=== PATIENT | female | born 1940 | race Caucasian/White ===

== ENCOUNTER → 2016-03-26 | Outpatient (CLI) | payer MEDICARE, OTHER ==
[2015-11-01 08:45] VITALS: BP 116/52
[~2016-03-26] MED LIST: ALEN70TA5 PO; ASPI-482 PO; ATEN50TA PO; ATORVASTATIN CA80 MG PO; CALC-104 PO; FURO-68 PO; FURO40TA4 PO; HYDR-971 PO; INSU100I13 SQ; INSU100I17 SQ; LEVO75TA5 PO; LISI40TA PO; MULT1TAB52 PO; SPIR25TA3 PO
--- NOTE | 2016-03-26 14:53 | KCIC ---
PROCEDURE Bone density DEXA. HISTORY Postmenopausal, osteoporosis. COMPARISON Bone density February 10, 2010. FINDINGS Dual photon densitometry of the lumbar spine and left proximal femur is performed. Bone mineral density values are measured in grams per cm2. Lumbar spine, L1-L4, total bone mineral density is 1.440, T-score 3.6, Z-score 5.9. On prior study the T-score was 2.2. Left total femur bone mineral density 0.846, T-score -0.8, Z-score 1.0. On prior study the T-score was -1.0. World Health Organization criteria for bone mineral density interpretation classify patient's as normal (T-score at or above -1.0), osteopenic (T-score between -1 and -2.5), or osteoporotic (T-score at or below -2.5). IMPRESSION Normal bone mineral density of the lumbar spine and the left femur. Electronically signed by: Sergei Watson MD (Mar 26, 2016 14:52:15)
== END | disposition home or self-care (01) ==
LOC: KCIC DEXA 14:05
PROVIDERS: ATTEND Nurse Practitioner Family
DX: M81.0 Age-related osteoporosis without current pathological fracture (principal); Z78.0 Asymptomatic menopausal state
CPT/HCPCS: 77080

== ENCOUNTER → 2016-04-27 | Outpatient (CLI) | payer MEDICARE, OTHER ==
[2015-11-01 08:45] VITALS: BP 116/52
--- NOTE | 2016-04-27 15:38 | KCIC ---
BILATERAL LOWER EXTREMITY VENOUS DUPLEX DOPPLER Indication:Reason For Study Reason: BLE SWELLING, LEFT MEDIAL KNEE HEMATOMA / Spl. Instructions: / History: Technique: Multiple real-time grayscale sonographic images were obtained over the bilateral lower extremities with use of spectral analysis and color Doppler imaging. Findings: There is normal color fill in on Doppler imaging of the bilateral deep venous system in the lower extremities. There is normal response to compression and augmentation. No evidence for deep venous thrombosis. No soft tissue mass or fluid collection is identified. Impression: Negative for deep venous thrombosis in the bilateral lower extremities. Electronically signed by: Spencer Aguila (Apr 27, 2016 15:36:36)
== END | disposition home or self-care (01) ==
LOC: KCIC US 13:53
PROVIDERS: ATTEND Nurse Practitioner Family
DX: S83.412A Sprain of medial collateral ligament of left knee, initial encounter (principal)
CPT/HCPCS: 93970

== ENCOUNTER → 2017-01-06 | Outpatient (CLI) | payer MEDICARE, OTHER ==
[2015-11-01 08:45] VITALS: BP 116/52
--- NOTE | 2017-01-06 14:24 | RAD ---
DATE: 01/06/2017. EXAM: DIGITAL SCREEN BILAT W/CAD. HISTORY: Routine mammographic screening. COMPARISON: 10/15/2015. This study was interpreted with the benefit of Computerized Aided Detection (CAD). FINDINGS: The breast parenchyma is primarily fatty replaced. Breast parenchyma level density A.. There are no suspicious masses, microcalcifications or architectural distortion. Scattered and coarse calcifications are stable and benign. A few parenchymal densities are stable. BI-RADS CATEGORY: 2 BENIGN FINDING(S). RECOMMENDED FOLLOW-UP: 12M 12 MONTH FOLLOW-UP. PQRS compliance statement: Patient information was entered into a reminder system with a target due date 01/06/2018 for the next mammogram. Mammography is a sensitive method for finding small breast cancers, but it does not detect them all and is not a substitute for careful clinical examination. A negative mammogram does not negate a clinically suspicious finding and should not result in delay in biopsying a clinically suspicious abnormality. "Our facility is accredited by the [employer] Mammography Program."
== END | disposition home or self-care (01) ==
LOC: MAMMO 12:15
PROVIDERS: ATTEND Family Medicine
DX: Z12.31 Encounter for screening mammogram for malignant neoplasm of breast (principal)
CPT/HCPCS: G0202; 77067

== ENCOUNTER → 2018-01-18 | Outpatient (CLI) | payer MEDICARE, OTHER ==
[2015-11-01 08:45] VITALS: BP 116/52
[~2018-01-18] MED LIST changes: +HYDR-3164 PO; -HYDR-971 PO; +LISI-130 PO; -LISI40TA PO; -SPIR25TA3 PO; +SPIR25TA5 PO
--- NOTE | 2018-01-18 14:06 | KCIC ---
MRI Lumbar Spine without contrast History: Left leg weakness, lumbar radiculopathy Technique: Multiplanar, multi sequential noncontrast MR imaging was performed of the lumbar spine. Comparison: None Findings: There is some motion degradation. There is grade 1 anterior spondylolisthesis L4-5, negligible anterior spondylolisthesis L3-4 and L5-S1 and negligible posterior subluxation L2 relative L3. Conus terminates at L1-2. There is fairly advanced degenerative disc disease at L2-3, moderate degenerative disc disease at L4-5 and to a somewhat lesser degree at L1-2 and L3-4, very minimally L5-S1. There are hemangiomas of T10, L2, L4. There is degenerative endplate change greatest L2-3 and L3-4. Lumbar vertebral body stature is overall adequate. There is very mild lumbar levoscoliosis. L1-L2: There is a shallow posterior bulge/protrusion. There is prominence of posterior epidural fat, mild buckling of the ligamentum flavum, mild facet degenerative change. Combination of findings results in overall mild spinal stenosis. Neural foramina are adequate. L2-L3: There is moderate buckling of the ligamentum flavum on the right, to lesser degree on the left. There is prominence of posterior epidural fat. There is mild facet hypertrophic change greater on the right. There is minimal broad posterior disc osteophyte complex. Combination of findings results in overall moderate attenuation of the thecal sac, greater degree of posterior attenuation by epidural lipomatosis. There is mild narrowing of the right neural foramen, left neural foramen overall adequate. L3-L4: There is moderate buckling of the ligamentum flavum and minimal facet degenerative change. There is mild prominence of posterior epidural fat. There is negligible disc osteophyte complex. Combination of findings results in overall mild attenuation of the thecal sac, greater degree attenuation posteriorly by epidural lipomatosis. Neural foramina are overall adequate. L4-L5: There is severe facet degenerative change. There is mild to moderate buckling of the ligamentum flavum. There is mild partial uncovering of the posterior aspect of the disc due to spondylolisthesis. Combination of findings results in moderate to severe spinal stenosis with limited preserved subarachnoid space, lateral recess stenosis bilaterally somewhat greater on the right foramen with contact of the descending L5 nerve roots. Neural foramina are overall adequate. L5-S1: There is moderate to severe facet degenerative change, fluid in the facet articulations bilaterally. There is mild/moderate buckling of the ligamentum flavum. There is moderate to severe narrowing of the far left lateral recess from posteriorly at location of descending left S1 nerve root, contact descending left S1 nerve root. There is very mild narrowing of the posterior aspect of the far right lateral recess. Central canal is adequate. There is very mild narrowing of the left neural foramen, right neural foramen adequate. Impression: 1. There is moderate to severe spinal stenosis L4-5 and left lateral recess stenosis L5-S1 as described. There is moderate attenuation of the thecal sac at L2-3 although mostly from posterior epidural lipomatosis, lesser degree of mild attenuation of the thecal sac at L3-4 and mild spinal stenosis L1-2. 2. There is multilevel abnormal alignment as stated, multilevel facet degenerative change. 3. There is multilevel degenerative disc disease greatest L2-3 and L4-5. Electronically signed by: Geo Wilson MD (01/18/2018 2:02 PM) [facility]
== END | disposition home or self-care (01) ==
LOC: KCIC MRI 12:13
PROVIDERS: ATTEND Family Medicine
DX: M51.36 Other intervertebral disc degeneration, lumbar region (principal); M48.061 Spinal stenosis, lumbar region without neurogenic claudication; M43.16 Spondylolisthesis, lumbar region; M25.78 Osteophyte, vertebrae; D18.09 Hemangioma of other sites
CPT/HCPCS: 72148

== ENCOUNTER → 2018-03-02 | Outpatient (CLI) | payer MEDICARE, OTHER ==
[2015-11-01 08:45] VITALS: BP 116/52
[~2018-03-02] MED LIST changes: +ALLO100T PO; +AMOX1TAB61 PO; +SAXA5TAB PO
--- NOTE | 2018-03-02 18:51 | PAIN ---
DATE OF SERVICE: 03/02/2018 INITIAL CONSULTATION FOR PAIN CLINIC CHIEF COMPLAINT: Low back and bilateral lower extremity pain. HISTORY OF PRESENT ILLNESS: This is a 77-year-old female who presents with history of pain in the low back, slightly worse on the left than the right, for many years. The patient reports no specific injury or action that she is aware of, but significant pain in the low back and bilateral lower extremities, more on the left leg than right, radiating into the posterior gluteus, posterior lateral thigh, lateral anterior thigh, medial thigh on the left and medial thigh on the right, but worse on the left side. The patient reports it is worse with standing, walking, changing positions, describes the pain as aching and dull, sharp, shooting, stinging at times and throbbing in the low back. The patient reports it awakens her from sleep occasionally, but not generally. The patient reports it feels better with lying down or sitting down. She has no trouble sitting in a car even for prolonged periods, but it does affect her ability to walk more than about 10-15 minutes; however, she is not using any assistive device to ambulate. The patient has had some chiropractic treatment and has this ongoing about once every 1 to 2 months, which does decrease the pain fairly significantly by about 50% or more. The patient reports it does not last more than about a week. The patient has had no other formal physical therapies at this time. No other treatments or other modalities. He is taking [id number]-[id number] ibuprofen and Tylenol, which helps by about 50% as well at times. The patient did have an MRI scan of lumbar spine showing [id number]-[id number] spinal stenosis L4-L5 and left lateral recess stenosis at L5-S1 with moderate attenuation at thecal sac at L2-L3, multilevel abnormal alignment as well in the lumbar spine. The patient rates her disability rate from 0-10, 10 being the worst, is 0 with most activities, family and home responsibility, recreation, social activity, occupation, sexual behavior, self-care and life support activities. She reports that she just puts up with the pain and goes about her normal activities at most times despite the pain. PAST MEDICAL HISTORY: Significant for type 2 diabetes, now insulin-dependent, hypertension, hypercholesterolemia, obesity, arthritis. PREVIOUS SURGERY: Include cataract extractions, tonsillectomy, hysterectomy, carotid endarterectomy in the past as well. CURRENT MEDICATIONS: Include Lasix, alendronate, lisinopril, multivitamins, atenolol, atorvastatin, levothyroxine, Citracal, NovoLog, Lantus insulin and daily baby aspirin. ALLERGIES: THE PATIENT IS ALLERGIC TO SULFA. FAMILY HISTORY: Significant for heart disease, type 2 diabetes, high cholesterol, and high blood pressure. SOCIAL HISTORY: The patient does not smoke; does not use any alcohol; does not use any illegal, illicit or recreational drugs. She is single. Lives locally in [place], [place]. Reports that she is currently retired. REVIEW OF SYSTEMS: The patient's review of systems is positive for those items mentioned in history of present illness. All systems reviewed and otherwise negative. It is complete, full and well documented on the patient's chart. PHYSICAL EXAMINATION: VITAL SIGNS: Blood pressure 139/90, pulse is 64, respirations 18, temperature is 98.1 degrees Fahrenheit. The patient's height is 5 feet 2 inches and weighs 244 pounds. GENERAL: The patient is awake, alert, oriented, appropriate, very pleasant demeanor. HEENT: Head normocephalic, atraumatic. Extraocular movements are intact and symmetrical. Oral cavity: Mucous membranes are moist and pink. Dentition is intact. NECK: Shows anterior throat supple without palpable lymphadenopathy noted. Swallow reflex symmetrical. CHEST: Shows normal with inspection. Breath sounds clear to auscultation bilaterally. HEART: Shows S1, S2 clear. No murmurs auscultated. ABDOMEN: Soft, nontender, nondistended. No palpable organomegaly is noted. No rebound or guarding demonstrated. BACK: Shows spine grossly in the midline. Normal-appearing thoracic kyphosis and lumbar lordotic curvature. Lumbar paraspinous muscle shows symmetrical on inspection as is thoracic paraspinous musculature with palpation. There is some mild tenderness in the low thoracic distribution and throughout the upper, middle and lower distribution of paraspinous muscles in the lumbar distribution, but only diffusely and only to [id number] extent, more in the lower distribution on the left. No tenderness over the spinous processes, sacrum or sacroiliac regions. The patient has good rotation of motion of lumbar spine, both laterally as well as extension and flexion without significant difficulty. EXTREMITIES: The patient's lower extremities shows deep tendon reflexes at 1+ in the patellar and tendo calcaneus tendons are equal. Motor exam is approximately 4 on a scale of 5, but symmetrical and equal with dorsiflexion, extension, quadriceps and hamstring flexion. Peripheral pulses are 1+ posterior tibia. No peripheral edema is noted bilaterally. Lower extremities are warm and dry to touch, equal in color and appearance. Straight leg raise noted to be negative for reproduction of radicular symptoms bilaterally as is Gaenslen's and Long's maneuvers are negative bilaterally. The patient ____ her toes without significant difficulty or loss of balance, walks with a normal-appearing gait, does not appear to favor the right or left lower extremity significantly, not using any assistive devices to ambulate as well. SKIN: Shows warm and dry, good turgor. No edema. No sores, rashes or bruising. IMPRESSION: This is a 77-year-old female with: 1. Many year history of low back pain radiating to the lower extremities, worse on the left than the right in a radicular fashion. 2. MRI scan of lumbar spine as noted. 3. Obesity. 4. Arthritis. 5. Hypertension. 6. Diabetes. PLAN: Options were discussed with the patient including conservative medical management, physical therapy, interventional technique. She would like to pursue most conservative management at this time. We discussed physical therapy using a pool or water therapy and she would like to pursue this. We will make the arrangements to start the water therapy. The patient will follow up after the therapy is completed. We discussed any further modalities if necessary pending on the patient's success with the pool therapy. The patient understands and agrees. We will make these arrangements and the patient will follow up as scheduled. MATTY AMAYA MD DR: [email or web address]/otf JOB#: [id number] / [id number]
== END | disposition home or self-care (01) ==
LOC: PNCL 11:07
PROVIDERS: ATTEND Anesthesiology
DX: M54.5 Low back pain (principal); M79.662 Pain in left lower leg; M79.661 Pain in right lower leg; E11.9 Type 2 diabetes mellitus without complications; I10 Essential (primary) hypertension; E78.00 Pure hypercholesterolemia, unspecified; E66.9 Obesity, unspecified; M19.90 Unspecified osteoarthritis, unspecified site; Z79.4 Long term (current) use of insulin; Z88.2 Allergy status to sulfonamides
CPT/HCPCS: G0463

== ENCOUNTER 2018-03-04 17:42 | Emergency (ER) | payer MEDICARE, OTHER ==
[~2018-03-04] VITALS: Ht 157.5 cm; Wt 108.9 kg
[~2018-03-04 17:42] MED LIST changes: -AMOX1TAB61 PO
[2018-03-04] MEDS ORDERED: HYDROcodone/APAP 5/325MG 1 TAB TABLET PO ONE (18:45)
[2018-03-04] MEDS ORDERED: NEOMY/BACITR/POLYMYXIN OINT PACKET. TP ONE (18:45)
[2018-03-04] MEDS ORDERED: DIPHTH,PERTUSS(ACELL),TET TOX 0.5 ML DISP.SYRIN. VAX IM ONE (18:45)
[2018-03-04] MEDS ORDERED: AMOXICILLIN/K CLAV 875/125MG TABLET. PO ONE (18:45)
[2018-03-04] MEDS ORDERED: AMOX1TAB61 PO (20:15)
--- NOTE | 2018-03-04 20:15 | PHYS DOC ---
Past Medical History Past Medical History: Diabetes-Type II, Hypertension Past Surgical History: Hysterectomy, Tonsillectomy, Other Additional Past Surgical Histo: left carotid endart. Alcohol Use: None Drug Use: None Adult General Chief Complaint Chief Complaint: ANIMAL BITE HPI HPI Patient is a 77 year old female with history of diabetes type 2, hypertension, who presents with a cat bite on the left dorsal hand, patient got bit by the doctor in-laws cat. She does not know the immunization status of the cat. Patient is not up-to-date with her tetanus. Review of Systems Review of Systems Constitutional: Denies fever or chills [] Musculoskeletal: Denies back pain or joint pain [] Integument: cat bite on the left dorsal hand Neurologic: Denies headache, focal weakness or sensory changes [] All other systems were reviewed and found to be within normal limits, except as documented in this note. Current Medications Current Medications Current Medications Medications (Trade) Dose Ordered Sig/Martínez Start Time Stop Time Status Last Admin Dose Admin Acetaminophen/ Hydrocodone Bitart (Lortab 5/325) 1 tab 1X ONCE 03/04/18 18:45 03/04/18 18:56 DC Amoxicillin/ Clavulanate Potassium (Augmentin 875/ 125mg) 1 tab 1X ONCE 03/04/18 18:45 03/04/18 18:56 DC 03/04/18 19:07 1 TAB Diphtheria/ Tetanus/Acell Pertussis (Boostrix) 0.5 ml ONCE ONCE 03/04/18 18:45 03/04/18 18:56 DC 03/04/18 19:09 0.5 ML Neomycin/ Polymyxin/ Bacitracin (Triple Antibiotic Ointment) 1 pkt 1X ONCE 03/04/18 18:45 03/04/18 18:56 DC 03/04/18 19:14 1 PKT Allergies Allergies Allergies Coded Allergies Type Severity Reaction Last Updated Verified Sulfa (Sulfonamide Antibiotics) Allergy Intermediate ? CHILD 07/24/15 Yes Physical Exam Physical Exam Constitutional: Well developed, well nourished, no acute distress, non-toxic appearance. [] Skin: Warm, dry, and left dorsal hand along the fifth metacarpal proximal and with a puncture wound approximately 2 cm consistent with cat bite. There is no obvious tendon involvement. Patient able to flex and extend the left hand and fingers with no difficulties. Adequate radial, medial, ulnar sensation to the left hand. +2 left radial pulse. Cap refill less than 2 seconds the left fingers. Back: No tenderness, no CVA tenderness. [] Extremities: No tenderness, no cyanosis, no clubbing, ROM intact, no edema. [] Neurologic: Alert and oriented X 3, normal motor function, normal sensory function, no focal deficits noted. [] Psychologic: Affect normal, judgement normal, mood normal. [] Current Patient Data Vital Signs Vital Signs Date Time Temp Pulse Resp B/P (MAP) Pulse Ox O2 Delivery O2 Flow Rate FiO2 03/04/18 18:40 98.2 67 18 168/80 (109) 95 Room Air 98.2 EKG EKG [] Radiology/Procedures Radiology/Procedures [] Course & Med Decision Making Course & Med Decision Making Pertinent Labs and Imaging studies reviewed. (See chart for details) This is a 77-year-old female patient presenting to the ED today with cat bite to the left hand. Left hand x-rays interpreted by Dr. Parra are negative for any acute findings. Left hand was cleaned thoroughly in the ED. Neosporin applied to the area. Nonstick dressing. Discharged with a demented first dose given in the ED. Tetanus updated. Wound care instructions and return precautions provided. Follow -up with PCP in 1-2 weeks as needed. Dragon Disclaimer Dragon Disclaimer This electronic medical record was generated, in whole or in part, using a voice recognition dictation system. Departure Departure Impression: Primary Impression: Cat bite of left hand Disposition: 01 HOME, SELF-CARE Condition: STABLE Referrals: YVETTE SEXTON MD (PCP) Follow up in 1-2 weeks Patient Instructions: Animal Bite, [id number]-[id number] Additional Instructions: You have a cat bite to the left hand. Please keep the area clean and dry. You can shower and wash the area with soap and water. Take the prescribed antibiotics until completed. Apply Neosporin to the affected area twice a day. Monitor the area for any worsening condition and return to the emergency room. Follow-up with your own doctor in 1-2 weeks as needed. Scripts Amoxicillin/Potassium Clav (AUGMENTIN 875-125 TABLET) 1 Each Tablet 1 TAB PO BID, #20 TAB Prov: ANGELIC MATTHEWS CNMT 03/04/18 Problem Qualifiers Primary Impression: Cat bite of left hand Encounter type: initial encounter Qualified Codes: S61.452A - Open bite of left hand, initial encounter; W55.01XA - Bitten by cat, initial encounter ANGELIC MATTHEWS APRN Mar 04, 2018 20:15
[2018-03-04 20:26] VITALS: BP 186/79
--- NOTE | 2018-03-04 20:43 | RAD ---
EXAM: Left hand, 3 views. HISTORY: Cat bite. COMPARISON: None. FINDINGS: 3 views of the left hand are obtained. There is no fracture, dislocation or subluxation. There is moderate first carpometacarpal joint space narrowing with subchondral sclerosis and spurring. There is severe first interphalangeal and second through fifth distal interphalangeal joint osteophytosis. No radiodense foreign body is seen. There is suspected bandage material overlying the ulnar aspect of the hand. IMPRESSION: 1. No acute osseous finding or radiodense foreign body status post cat bite. 2. Moderate first carpometacarpal and severe first interphalangeal and second through fifth distal interphalangeal joint degenerative change. Electronically signed by: Rachel Lopez MD (03/04/2018 8:39 PM) [facility]
== END 2018-03-04 20:27 | disposition home or self-care (01) ==
LOC: ER 17:42
DX: S61.452A Open bite of left hand, initial encounter (principal); I10 Essential (primary) hypertension; E11.9 Type 2 diabetes mellitus without complications; Z88.2 Allergy status to sulfonamides; W55.01XA Bitten by cat, initial encounter; Y93.89 Activity, other specified; Y92.89 Other specified places as the place of occurrence of the external cause; Y99.8 Other external cause status
CPT/HCPCS: 73130; 90471; 90715; 99283

== ENCOUNTER → 2018-08-17 | Outpatient (CLI) | payer SELFPAY ==
[~2018-08-17] MED LIST changes: -ALEN70TA5 PO; +ALEN70TA6 PO; +AMOX1TAB61 PO
--- NOTE | 2018-08-18 13:28 | KCIC ---
EXAM: CT CORONARY CALCIUM SCORING. HISTORY: Hypertension diabetes, hyperlipidemia. COMPARISON: None. Exposure: One or more of the following individualized dose reduction techniques were utilized for this examination: 1. Automated exposure control 2. Adjustment of the mA and/or kV according to patient size 3. Use of iterative reconstruction technique FINDINGS: Limited noncontrast CT of the chest was performed for coronary calcium scoring. Refer to the worksheets for full detail. Agatston calcium coronary scoring is as follows: LMA: 13.1 LAD: 66.1. LCX: 0. RCA: 34.3. Total: 113.5. Bone windows reveal no suspicious lesions. Images of the upper abdomen demonstrate a small hiatal hernia. Few calcified splenic granulomas identified.. IMPRESSION: 1. Coronary calcium score is 113.5. Electronically signed by: Paco Berry MD (08/18/2018 1:25 PM) [facility]
== END | disposition home or self-care (01) ==
LOC: KCIC CT 13:09
PROVIDERS: ATTEND Family Medicine
DX: I12.9 Hypertensive chronic kidney disease with stage 1 through stage 4 chronic kidney disease, or unspecified chronic kidney disease (principal); E11.22 Type 2 diabetes mellitus with diabetic chronic kidney disease; N18.3 Chronic kidney disease, stage 3 (moderate); E11.65 Type 2 diabetes mellitus with hyperglycemia; K44.9 Diaphragmatic hernia without obstruction or gangrene; J84.10 Pulmonary fibrosis, unspecified; E78.5 Hyperlipidemia, unspecified
CPT/HCPCS: 75571

== ENCOUNTER → 2018-09-21 | Outpatient (CLI) | payer MEDICARE, OTHER ==
--- NOTE | 2018-09-22 14:28 | RAD ---
DATE: 09/21/2018 EXAM: MAMMO BAHMAN SCREENING BILATERAL HISTORY: Routine screening evaluation COMPARISON: 09/09/2014, 08/28/2013, 10/15/2015, 01/06/2017 This study was interpreted with the benefit of Computerized Aided Detection (CAD). FINDINGS: Breast Density: FATTY The Breast Parenchyma is primarily fatty replaced. Breast parenchyma level density A.. Benign calcifications are present. No suspicious masses, microcalcifications or architectural distortion is present to suggest malignancy in either breast. The visualized axillae are unremarkable. IMPRESSION: No mammographic evidence for malignancy BI-RADS CATEGORY: 2 BENIGN FINDING(S) RECOMMENDED FOLLOW-UP: 12M 12 MONTH FOLLOW-UP PQRS compliance statement: Patient information was entered into a reminder system with a target due date for the next mammogram. Mammography is a sensitive method for finding small breast cancers, but it does not detect them all and is not a substitute for careful clinical examination. A negative mammogram does not negate a clinically suspicious finding and should not result in delay in biopsying a clinically suspicious abnormality. "Our facility is accredited by the [employer] Mammography Program."
== END | disposition home or self-care (01) ==
LOC: MAMMO 12:44
PROVIDERS: ATTEND Obstetrics & Gynecology
DX: Z12.31 Encounter for screening mammogram for malignant neoplasm of breast (principal); N64.89 Other specified disorders of breast
CPT/HCPCS: 77063; 77067